=== PATIENT | male | born 1955 | race Caucasian/White ===

== ENCOUNTER 2017-01-23 08:02 | Day surgery (SDC) | payer OTHER ==
[~2017-01-23 08:02] MED LIST: Buffered Lidocaine 0.9% SYRIN* 5 ML/SYR SYRINGE INTRADERM ONE
[2017-01-23] MEDS ORDERED: fentaNYL* 50 MCG/ML 2 ML VIAL (100 MCG VIAL) ONE (08:52)
[2017-01-23] MEDS ORDERED: Midazolam* 1 MG/ML 2 ML VIAL (2 MG) ONE ×2 (08:52→10:04)
[2017-01-23] MEDS ORDERED: Bupivacaine 0.25% SDV* 30 ML ONE (09:28)
[2017-01-23] MEDS ORDERED: ceFAZolin 1 GM VIAL(*) ONE (09:32)
[2017-01-23] MEDS ORDERED: ceFAZolin 2 GM PREMIX (*) 2 GM/50 ML BAG IVPB ONE (09:32)
[2017-01-23] MEDS ORDERED: Famotidine IV* 10 MG/ML 2 ML (20 mg) ONE (09:40)
[2017-01-23] MEDS ORDERED: KETAMINE HCL* 50 MG/ML 10 ML VIAL ONE (09:51)
[2017-01-23] MEDS ORDERED: Ondansetron INJ* 2 MG/ML VIAL IV PRN (10:16)
[2017-01-23] MEDS ORDERED: DiMENhydriNATE IV* 50 MG/ML VIAL IV PUSH PRN (10:16)
[2017-01-23] MEDS ORDERED: Acetaminophen TAB* 325 MG PO PRN (10:16)
[2017-01-23] MEDS ORDERED: Ketorolac INJ* 30 MG/ML 1 ML VIAL ONE ×2 (10:17→11:08)
[2017-01-23] MEDS ORDERED: Lidocaine 2% PF * 5 ML VIAL ONE ×2 (10:24→11:08)
[2017-01-23] MEDS ORDERED: Propofol* 10 MG/ML 20 ML BTL IV PUSH ONE ×2 (10:24→11:08)
[2017-01-23] MEDS ORDERED: Dexamethasone IV* 4 MG/ML 1 ML (4 MG) ONE (11:08)
[2017-01-23 11:14] VITALS: BP 157/82
--- NOTE | 2017-01-24 06:50 | OP ---
DATE OF OPERATION: 01/23/17 [facility] DATE OF : 53 SURGEON: Meng Parra MD COURT COLLECTIONS OFFICER: ANUPAMA Lopez ANESTHESIOLOGIST: Dr. Payne ANESTHESIA: Local MAC. PRE-OP DIAGNOSES: 1. Right carpal tunnel syndrome. 2. Right small trigger finger. POST-OP DIAGNOSES: 1. Right carpal tunnel syndrome. 2. Right small trigger finger. OPERATIVE PROCEDURE: 1. Right open carpal tunnel release. 2. Right small trigger finger release. INDICATIONS: Lucas has had progressive pretty significant right carpal tunnel syndrome. He is also having a right small trigger finger. We talked about his treatment options. He wanted to proceed with releases. I talked to him about risks and benefits. ESTIMATED BLOOD LOSS: 2 mL. COMPLICATIONS: None. FINDINGS: As expected. DESCRIPTION OF PROCEDURE: Lucas was seen in the preoperative holding area. The correct side, site, and procedure were identified. We came back to the operating room where he got some anesthesia and I infiltrated the operative area with 50 mL of 0.25% plain Marcaine. We then prepped and draped the arm in the usual fashion. A time-out was performed. I made a longitudinal incision in the standard location for an open carpal tunnel release. I carried the dissection down through the subcutaneous tissue and palmar fascia. The transverse carpal ligament was released just off the radial aspect of the hook of the hamate. The release was completed distally and I came proximally. He was such a large man and it was quite a deep hole and so I felt like to release it safely I needed to bring the incision back across the wrist flexion crease and so I did that in Katrin type fashion. I then took the remainder of the dissection down at least to the fascial layer and then released the remainder of the transverse carpal ligament in the distal antebrachial fascia just off the ulnar aspect of the palmaris longus tendon. I checked the release, everything was looking good, it was fully released proximally and distally. There was absolutely no pressure on the nerve, so I irrigated out the wound. Skin was closed with 4-0 nylon suture. I then made a 1-cm longitudinal incision over the right small finger A1 gerardo. Dissection was carried down bluntly and the soft tissue was released off the gerardo. Ragnell retractors were placed and then the A1 gerardo was incised along the course of the tendons with the #15 blade in the mid portion of the A1 gerardo. The release was then completed distally and proximally with the tenotomy scissors. I had him flex the hand multiple times. He cannot induce any triggering. We irrigated out the wound. Skin was closed with 4-0 nylon suture. Wounds were dressed with Xeroform, 4x4s, sterile Webril, and Saeed bandage. He was taken to the recovery room in stable condition. Please note I had inflated the tourniquet to 250 mmHg prior to making skin incision and was deflated after dressings were on. [id number]/CPS #: [id number] MTDD
== END 2017-01-23 11:28 | disposition home or self-care (01) ==
LOC: OREAST 08:02
PROVIDERS: ATTEND Orthopaedic Surgery Hand Surgery
DX: G56.01 Carpal tunnel syndrome, right upper limb (principal); M65.351 Trigger finger, right little finger; Z87.891 Personal history of nicotine dependence; E11.9 Type 2 diabetes mellitus without complications; Z79.4 Long term (current) use of insulin; I10 Essential (primary) hypertension
CPT/HCPCS: J0690; J1100; J1885; J2250; J2704; J3010

== ENCOUNTER 2017-04-21 13:24 | Emergency (ER) | payer OTHER ==
[2017-04-21] MEDS ORDERED: D5NS 0.9% 1000 ML BAG* 1,000 ML IV SCH (14:00)
[2017-04-21 15:33] LABS: ABS Basophils 0.1 10^3/ul (0-0.2); ABS Eosinophils 0.2 10^3/ul (0-0.6); ABS Lymphocytes 1.4 10^3/ul (1.0-4.8); ABS Monocytes 0.6 10^3/ul (0-0.8); ABS Neutrophils 6.2 10^3/ul (1.5-7.7); ABS Nucleated RBC 0 10^3/ul; Eosinophil % 1.8 % (0-6); Hematocrit 44 % (42-52); Lymphocyte % 17.1 % (25-47); Mean Corpuscular HGB Conc 34 g/dl (31-36); Mean Corpuscular Hemoglobin 31 pg (27-31); Mean Corpuscular Volume 90 fL (80-94); Mean Platelet Volume 9 um3 (7.4-10.4); Nucleated Red Blood Cells % 0.1; Platelet Count 168 10^3/ul (150-450); Red Cell Distribution Width 13 % (10.5-15); White Blood Count 8.5 10^3/ul (3.5-10.8)
[2017-04-21 15:47] LABS: EGFR Non-African American 112.4 (>60)
[2017-04-21 15:55] LABS: INR 0.96 (0.77-1.02)
[2017-04-21] MEDS ORDERED: Morphine INJ* 4 MG/ML 1 ML CARPUJECT IV ONE (16:54)
[2017-04-21] MEDS ORDERED: Ketorolac INJ* 30 MG/ML 1 ML VIAL IV PUSH ONE (17:04)
[2017-04-21 18:33] VITALS: BP 140/78
--- NOTE | 2017-04-21 18:50 | PN ---
Progress Note - Progress Note Date of Service: 04/21/17 Note: Patient signed out by Brigid ALTMAN pending consult with dr jayla dickerson saw patient and said to return to Monday for admission and surgery monday. He is to restrict weight on the area Diagnosis: hardware issue right leg Condition: stable Disposition: home
[2017-04-24] MEDS ORDERED: Bupivacaine 0.5% SDV PF* 10-30ML VIAL ONE (12:59)
[2017-04-24] MEDS ORDERED: Ondansetron INJ* 2 MG/ML VIAL IV PRN (16:50)
[2017-04-24] MEDS ORDERED: diPHENhydraMINE IV* 50 MG/ML 1 ml VIAL (BENADRYL) IV PRN (16:50)
[2017-04-24] MEDS ORDERED: Ondansetron TAB* 4 MG PO PRN (16:50)
[2017-04-24] MEDS ORDERED: Acetaminophen TAB* 325 MG PO PRN (16:50)
[2017-04-24] MEDS ORDERED: Cyclobenzaprine TAB* 10 MG PO PRN (16:50)
[2017-04-24] MEDS ORDERED: Magnesium Hydroxide LIQ* 30 ML UDC PO PRN (16:50)
[2017-04-24] MEDS ORDERED: Bisacodyl SUPP* 10 MG SUPP PR PRN (16:50)
[2017-04-24] MEDS ORDERED: Morphine INJ* 2 MG/ML 1 ML CARPUJECT IV PRN (16:50)
[2017-04-24] MEDS ORDERED: oxyCODONE TAB* 5 MG TAB PO PRN (16:50)
[2017-04-24] MEDS ORDERED: Morphine INJ* 4 MG/ML 1 ML CARPUJECT IV PRN (16:50)
[2017-04-24] MEDS ORDERED: oxyCODONE/Acetamin 5/325 MG* TAB PO PRN ×2 (16:50)
[2017-04-24] MEDS ORDERED: D5W 1/2 NS 1000 ML BAG* 1,000 ML IV SCH (17:00)
[2017-04-24] MEDS ORDERED: ceFAZolin 1 GM VIAL(*) 1 GM in NS 0.9% 50 ML* 50 ML IVPB SCH (17:00)
[2017-04-24] MEDS ORDERED: Albuterol HFA INHALER* 8 gm MDI INH PRN (17:06)
[2017-04-24] MEDS ORDERED: Docusate CAP* 100 MG PO SCH (21:00)
[2017-04-24] MEDS ORDERED: Magnesium Hydroxide LIQ* 30 ML UDC PO SCH (21:00)
[2017-04-24] MEDS ORDERED: Insulin GLARGINE(*) 1 UNITS UNIT SUBCUT SCH (21:00)
[2017-04-25] MEDS ORDERED: Heparin VIAL(*) 5000 UNITS/ML VIAL (FIVE THOUSAND) SUBCUT SCH (12:00)
[2017-04-25] MEDS ORDERED: Aspirin TAB* 325 MG PO SCH (12:00)
--- NOTE | 2017-04-26 23:09 | CONS ---
CONSULTATION REPORT: DATE OF CONSULT: 04/21/17 - EMERGENCY DEPT REASON FOR CONSULT: Right distal femur hardware, broken, painful. HISTORY OF PRESENT ILLNESS: The patient is a 61-year-old man, a patient of my colleague Dr. Joyners, who is over 1 year status post ORIF right distal femur with a lateral locking plate done at [facility], who has recently had increasing right knee pain and has been followed by Dr. Borges, who presents today to the ED with worsening of this pain. In the last several years, the patient has undergone both open reduction internal fixation of both distal femur and a tibial plateau fractures, right. The patient has had pain and has been followed by Dr. Borges for a nonunion of the right distal femur. MRI on 03/08/17 had shown a persistent fracture cleft at the distal diaphysis of the right femur and a healed right tibial plateau fracture. The patient had seen Dr. Borges, as recently as 03/22/17. Dr. Borges was trying to suss out whether the patient's pain was secondary to arthritis of the right knee or to a nonunion of the distal femur. This would determine whether a surgical management with a total knee arthroplasty versus a revision open reduction and internal fixation of right distal femur would be more appropriate. At the 03/22/17 clinic visit, the patient had a possibly diagnostic and therapeutic injection of the right knee with cortisone. I had seen the patient in my office on 04/06/17. The patient had described some pain about the right thigh from 03/29/17 without any new trauma. He had been using a wheelchair instead of a cane that he had been previously using. The patient had also, it should be stated, used a bone stimulator about the right thigh. At that clinic visit, I interpreted his MRI from February, which showed nonunion. I diagnosed him with right knee osteoarthritis as well as a right femur shaft nonunion. I encouraged the patient to take vitamin D, have a vitamin D testing obtained as vitamin D deficiency can definitely lead to fracture nonunion. I told the patient that given only a minimal response to the cortisone injection of the knee, I thought that his pain was emanating from the nonunion rather than the knee joint itself. I told the patient to follow up with Dr. Borges at his next scheduled appointment. The patient presented today to the emergency room at [facility], complaining of a worsening pain. No new trauma. 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 The patient has no other joint pain. The patient declines pain medication in the emergency department as he says that he prefers to manage the pain in his own way. PAST MEDICAL HISTORY: Diabetes mellitus. PAST SURGICAL HISTORY: Right femur open reduction internal fixation, distal femur; open reduction internal fixation, right tibial plateau; appendectomy; bilateral carpal tunnel release. MEDICATIONS: 1. Lantus. 2. NovoLog. 3. Tylenol p.r.n. 4. Relafen. 5. Albuterol p.r.n. ALLERGIES: No known drug allergies. SOCIAL HISTORY: The patient is a former smoker. 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 The patient [place]. 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 REVIEW OF SYSTEMS: The patient has no headache, no chest pain, shortness of breath, heart palpitations, abdominal pain, right lower extremity no numbness and tingling. No other joint pains with the exception that the patient does have chronic back pain. PHYSICAL EXAM: Vitals at 7:06 p.m. on 04/21/17, the patient had a temperature of 98.2 degrees Fahrenheit, heart rate 77, blood pressure 140/78, respiratory rate 20, O2 saturations 98% on room air. No acute distress. Alert and oriented , appropriate mood and affect, appropriate dress and hygiene. I did not study the patient's gait as he was reclining on a stretcher in the emergency department. Well-coordinated bilateral upper and lower extremities. The patient is obese. The right lower extremity exam revealed no ecchymosis, no soft tissue swelling appreciable as compared to the left thigh and knee. The patient has some mild tenderness to palpation with vigorous palpation by me with my hand of his distal femur. The patient had no clear knee joint effusion. No skin compromise. The patient was comfortable within an arch of range of motion of the right knee passively, proximally 0 to 90 degrees flexion. Neurovascularly intact distally. DIAGNOSTIC STUDIES/LAB DATA: X-rays obtained in the emergency department of the right femur, 7 views, showed a lateral distal femoral plates with a clear break in the plate. A clear comminuted, segmental distal femur fracture is present in various degrees of healing or nonhealing. No significant callous which would indicate a hypertrophioc non-union. As compared to the prior images that I have seen in clinic, there seemed to be a more lucency about an oblique fracture line adjacent to the break in the plate. There is certainly step-off at the more distal of the fracture lines. There was also a tibial plateau plate in place. The patient has joint space narrowing at least moderate in the lateral compartment and mild in the medial compartment. ASSESSMENT: 1. Right distal femur fracture nonunion, atrophic. 2. Acute break in hardware, right distal femoral lateral plate. 3. History of right tibial plateau open reduction, internal fixation and right knee osteoarthritis. PLAN: 1. The patient's broken hardware is new. He has had slowly increasing pain in that right knee and thigh. Nonunion had been demonstrated on 03/08/17 MRI. The patient's pain failed to fully resolve with diagnostic/potentially therapeutic cortisone injection of the right knee. 2. The patient clearly needs a revision open reduction internal fixation of the right distal femur in the operating room. We discussed this. The patient hopes for Dr. Borges to do this procedure. Dr. Borges's office and Dr. Borges had already contacted me prior to my arriving in the emergency department that Dr. Borges would be able to do the procedure in 3 days, on Monday. 3. The patient and I briefly discussed his remaining hospitalized for pain control and functional support, but he preferred to return home. He is non- weight bearing right lower extremity. 4. I asked that the patient return to the hospital in 2 days, on 04/23/17, for a direct admission to the hospitalist service for preoperative clearance and medical and anesthesia management for an operation the following day by Dr. Borges on 04/24/17, that would likely consist of open reduction and internal fixation, revision, right distal femur fracture likely with iliac crest bone autograft. [id number]/[facility] #: [id number] [facility]
--- NOTE | 2017-05-02 12:27 | ED ---
Lower Extremity - HPI Summary HPI Summary: Patient presents to the ED from imaging with a dx of broken plate in the R leg. 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 Dr. Borges is ortho MD for patient. He had also seen Dr. Gonzalez in the office. D/t worsening knee pain, a MRI confirmed hardware to be broken and a new plate will likely need to be replaced. He declines pain medication on arrival. Pain is 8/10 and throbbing. PMHx includes DM and he states he has not eaten yet today. - History of Current Complaint Chief Complaint: EDExtremityLower Stated Complaint: RIGHT LEG BROKEN PLATE Time Seen by Provider: 04/21/17 13:36 Pain Intensity: 3 Pain Scale Used: 0-10 Numeric - Allergies/Home Medications Allergies/Adverse Reactions: Allergies Allergy/AdvReac Type Severity Reaction Status Date / Time environmental Allergy Sneezing Uncoded 01/23/17 08:30 Home Medications: Home Medications Albuterol HFA INHALER* [Ventolin HFA Inhaler*] 2 puff INH Q4H PRN 04/21/17 [ History Confirmed 04/21/17] Insulin ASPART (NF) [Novolog (NF)] 0 - 20 units SUBCUT TID WITH MEALS 04/21/17 [ History Confirmed 04/21/17] PMH/Surg Hx/FS Hx/Imm Hx Endocrine/Hematology History: Reports: Hx Diabetes - INSULIN DEPENDENT Denies: Hx Thyroid Disease Cardiovascular History: Denies: Hx Hypertension, Hx Pacemaker/ICD Respiratory History: Denies: Hx Asthma, Hx Chronic Obstructive Pulmonary Disease (COPD) GI History: Denies: Hx Ulcer History: Denies: Hx Renal Disease Musculoskeletal History: Reports: Hx Arthritis, Other Musculoskeletal History - STATES HAS A HX OF SEVERAL HEALED COMPRESSION FRACTURES Sensory History: Reports: Hx Contacts or Glasses - GLASSES Denies: Hx Hearing Aid Opthamlomology History: Reports: Hx Contacts or Glasses - GLASSES Psychiatric History: Denies: Hx Panic Disorder - Surgical History Surgery Procedure, Year, and Place: CARPAL TUNNEL-BILATERAL. 2016-PLATES IN RIGHT LEG-STELLA. APPENDECTOMY, TEETH REMOVED. TIBIAL [id number]. LASER ABLASION TREATMENT Hx Anesthesia Reactions: Yes - SEE MISC. COMMENT ABOVE - Immunization History Date of Tetanus Vaccine: Unknown Infectious Disease History: No Infectious Disease History: Denies: Hx Hepatitis, Hx Human Immunodeficiency Virus (HIV), Traveled Outside the [place] in Last 30 Days - Family History Known Family History: Positive: Hypertension, Diabetes - Social History Alcohol Use: Rare Substance Use Type: Reports: None Hx Tobacco Use: No Smoking Status (MU): Former Smoker Amount Used/How Often: 1.5 PPD X 10 YEARS Have You Smoked in the Last Year: No Physical Exam Vital Signs On Initial Exam: Initial Vitals Temp Pulse Resp BP Pulse Ox 98.7 F 100 20 185/79 95 04/21/17 13:25 04/21/17 13:25 04/21/17 13:25 04/21/17 13:25 04/21/17 13:25 Diagnostics - Vital Signs Vital Signs Temp Pulse Resp BP Pulse Ox 04/21/17 19:06 98.2 F 77 20 140/78 98 04/21/17 18:30 75 140/78 98 04/21/17 18:00 81 164/79 97 04/21/17 17:30 78 161/84 98 04/21/17 17:00 64 171/101 98 04/21/17 16:30 85 160/78 97 04/21/17 16:00 87 166/96 98 04/21/17 15:30 90 145/83 98 04/21/17 15:00 71 97 04/21/17 14:05 93 97 04/21/17 14:03 154/82 04/21/17 13:25 98.7 F 100 20 185/79 95 - Laboratory Lab Results: Lab Results 04/21/17 04/21/17 04/21/17 Range/Units 13:45 15:24 15:24 WBC 8.5 (3.5-10.8) 10^3/ul RBC 4.90 (4.0-5.4) 10^6/ul Hgb 15.0 (14.0-18.0) g/dl Hct 44 (42-52) % MCV 90 (80-94) fL MCH 31 (27-31) pg MCHC 34 (31-36) g/dl RDW 13 (10.5-15) % Plt Count 168 (150-450) 10^3/ul MPV 9 (7.4-10.4) um3 Neut % (Auto) 73.7 (38-83) % Lymph % (Auto) 17.1 L (25-47) % [place] % (Auto) 6.6 (1-9) % Eos % (Auto) 1.8 (0-6) % Baso % (Auto) 0.8 (0-2) % Absolute Neuts (auto) 6.2 (1.5-7.7) 10^3/ul Absolute Lymphs (auto) 1.4 (1.0-4.8) 10^3/ul Absolute Monos (auto) 0.6 (0-0.8) 10^3/ul Absolute Eos (auto) 0.2 (0-0.6) 10^3/ul Absolute Basos (auto) 0.1 (0-0.2) 10^3/ul Absolute Nucleated RBC 0 10^3/ul Nucleated RBC % 0.1 INR (Anticoag Therapy) 0.96 (0.77-1.02) APTT 32.7 (26.0-36.3) seconds Sodium (133-145) mmol/L Potassium (3.5-5.0) mmol/L Chloride (101-111) mmol/L Carbon Dioxide (22-32) mmol/L Anion Gap (2-11) mmol/L BUN (6-24) mg/dL Creatinine (0.67-1.17) mg/dL Est GFR ( Amer) (>60) Est GFR (Non-Af Amer) (>60) BUN/Creatinine Ratio (8-20) Glucose (70-100) mg/dL POC Glucose (mg/dL) 69 L (70-100) mg/dL Calcium (8.6-10.3) mg/dL Total Bilirubin (0.2-1.0) mg/dL AST (13-39) U/L ALT (7-52) U/L Alkaline Phosphatase (34-104) U/L Total Protein (6.4-8.9) g/dL Albumin (3.2-5.2) g/dL Globulin (2-4) g/dL Albumin/Globulin Ratio (1-3) 04/21/17 Range/Units 15:24 WBC (3.5-10.8) 10^3/ul RBC (4.0-5.4) 10^6/ul Hgb (14.0-18.0) g/dl Hct (42-52) % MCV (80-94) fL MCH (27-31) pg MCHC (31-36) g/dl RDW (10.5-15) % Plt Count (150-450) 10^3/ul MPV (7.4-10.4) um3 Neut % (Auto) (38-83) % Lymph % (Auto) (25-47) % [place] % (Auto) (1-9) % Eos % (Auto) (0-6) % Baso % (Auto) (0-2) % Absolute Neuts (auto) (1.5-7.7) 10^3/ul Absolute Lymphs (auto) (1.0-4.8) 10^3/ul Absolute Monos (auto) (0-0.8) 10^3/ul Absolute Eos (auto) (0-0.6) 10^3/ul Absolute Basos (auto) (0-0.2) 10^3/ul Absolute Nucleated RBC 10^3/ul Nucleated RBC % INR (Anticoag Therapy) (0.77-1.02) APTT (26.0-36.3) seconds Sodium 136 (133-145) mmol/L Potassium 3.8 (3.5-5.0) mmol/L Chloride 103 (101-111) mmol/L Carbon Dioxide 28 (22-32) mmol/L Anion Gap 5 (2-11) mmol/L BUN 11 (6-24) mg/dL Creatinine 0.71 (0.67-1.17) mg/dL Est GFR ( Amer) 144.6 (>60) Est GFR (Non-Af Amer) 112.4 (>60) BUN/Creatinine Ratio 15.5 (8-20) Glucose 198 H (70-100) mg/dL POC Glucose (mg/dL) (70-100) mg/dL Calcium 9.0 (8.6-10.3) mg/dL Total Bilirubin 0.70 (0.2-1.0) mg/dL AST 17 (13-39) U/L ALT 18 (7-52) U/L Alkaline Phosphatase 115 H (34-104) U/L Total Protein 6.3 L (6.4-8.9) g/dL Albumin 3.6 (3.2-5.2) g/dL Globulin 2.7 (2-4) g/dL Albumin/Globulin Ratio 1.3 (1-3) Result Diagrams: 04/21/17 15:24 04/21/17 15:24 Lab Statement: Any lab studies that have been ordered have been reviewed, and results considered in the medical decision making process. Lower Extremity Course/Dx - Course Course Of Treatment: Patient is given D5NS on arrival d/t low BG. Awaited consultation with Dr. Gonzalez. Patient is upset he must wait, but is willing to. He is restircted from any PO intake. He declines medication but later agrees to toradol. Ice given. Daughter (POA) is at bedside. Dr. Gonzalez consulted with patient who agrees to surgery Monday with DR. Borges. He will come back into the hospital on Monday night for an admission. He is Ok with this plan. Discharge - Discharge Plan Condition: Stable Disposition: HOME Patient Education Materials: Leg Pain (ED) Referrals: Yariel Garsai MD [Primary Care Provider] - Additional Instructions: Minimize weight bearing on the right leg. Return on Monday04/23/17 afternoon for a direct admission to the hospitalist, for surgery with Dr. Borges on Monday04/24/17. Return to the ER if you have any new or worsening symptoms.
== END 2017-04-21 19:02 | disposition home or self-care (01) ==
LOC: ED 13:24
DX: M79.604 Pain in right leg (principal); E11.9 Type 2 diabetes mellitus without complications; Z87.891 Personal history of nicotine dependence; Z79.4 Long term (current) use of insulin
CPT/HCPCS: 36415; 80053; 85025; 85610; 85730; 93005; 96374; 96375; 99283; J1885; J2270

== ENCOUNTER 2017-04-23 19:30 | Inpatient (IN) | payer OTHER ==
[2017-04-23] MEDS ORDERED: Albuterol HFA INHALER* 8 gm MDI INH PRN (20:17)
[2017-04-23] MEDS ORDERED: Dextrose 50% Syringe 50 ML* 25 GM/50 ML SYRINGE IV PUSH PRN (20:18)
[2017-04-23] MEDS ORDERED: Nabumetone TAB* 500 MG PO SCH (21:00)
[2017-04-23] MEDS: Insulin LISPRO* 1 UNITS UNIT SUBCUT SCH (21:49)
[2017-04-23] MEDS: Acetaminophen TAB* 325 MG PO PRN (22:02)
--- NOTE | 2017-04-23 23:28 | HP ---
CC: Dr. Garsia; Dr. Borges * HISTORY AND PHYSICAL: DATE OF ADMISSION: 04/23/17 PRIMARY CARE PROVIDER: Dr. Garsia. ORTHOPEDIC SURGEON: Dr. Borges. CHIEF COMPLAINT: Right distal femur fracture with nonunion and broken hardware. HISTORY OF PRESENT ILLNESS: Mr. Graves is a 61-year-old male who on 03/30/16 sustained a fall while in his kitchen and ended up with a distal right femur fracture. He was taken to [facility] where he underwent ORIF. 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 He has tried numerous modalities to try get this to heal. On 03/31/17, the patient awakened from sleep and was going to get out of bed and feel that he could not get up or bear any weight on his leg as he was concerned that the leg would give right out. He felt this was markedly different. He contacted Dr. Borges's office and was going to be set up for a CAT scan of the lower extremity. Finally on , the patient was arranged to have an x-ray of the right distal femur. He was going to leave the radiology suite when the radiologist stopped him from leaving and informing him that a plate had broken and he was referred to the emergency room. In the ER, the patient was seen by Dr. Gonzalez and was arranged to be directly admitted today, 04/23/17, to then undergo revision surgery on with Dr. Borges. The patient states that he has been hobbling around on the leg since the . Prior to that, he had been ambulating with a cane. Despite the now broken hardware, the patient was able to shovel snow while sitting in a wheelchair without any chest pain or shortness of breath and was able to chop wood again without any chest pain or shortness of breath. The patient states he manages pain with Relafen and Tylenol alone. PAST MEDICAL HISTORY: 1. Type 2 diabetes. 2. Chronic pain. PAST SURGICAL HISTORY: 1. Right femur ORIF. 2. Right tibial plateau fracture. 3. Appendectomy. 4. Bilateral carpal tunnel release. MEDICATIONS: 1. Lantus 40 units subcutaneous twice daily. 2. NovoLog 10 to 15 units subcutaneous t.i.d. a.c. 3. Tylenol p.r.n. 4. Relafen 500 mg p.o. b.i.d. 5. Albuterol 2 puffs inhaled q.4 hours p.r.n. shortness of breath. ALLERGIES: No known drug allergies. FAMILY HISTORY: Dad at the age of 88 of melanoma. Mom is also . He believes that she from chronic Tylenol poisoning. SOCIAL HISTORY: The patient is a former smoker. He smoked for approximately 10 years and quit in 1987. He drinks alcohol rarely. 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 He is . His daughter, Trudy, is his healthcare proxy. REVIEW OF SYSTEMS: A complete 11-system review of systems is obtained. Pertinent positives and negatives are as per HPI and otherwise negative. PHYSICAL EXAMINATION GENERAL: The patient is a well-developed, morbidly obese middle-aged male, sitting on the edge of the bed in no acute distress. VITAL SIGNS: Blood pressure 153/86, pulse 84, respirations 16, temp 98.0, O2 sat 98% on room air. HEENT: Pupils are equal. They are round. Extraocular muscles are intact. Oropharynx is clear. Oral mucosa is moist. There is no submandibular, cervical , or supraclavicular adenopathy. Thyroid is not enlarged. No thyroid nodules are noted. PULMONARY: Lungs are clear to auscultation bilaterally. The breath sounds are diminished though the patient does not provide a good effort. CARDIAC: Normal S1 and S2. Regular rate and rhythm. I do not appreciate any murmurs. There is no lower extremity edema. ABDOMEN: Bowel sounds are present. Abdomen is soft, nontender, nondistended. MUSCULOSKELETAL: There is no cyanosis or clubbing of the digits. There is full active range of motion of all 4 extremities. NEURO: Cranial nerves II through XII are grossly intact. Sensation is intact to light touch throughout. Strength is 5/5 and symmetric in both upper and lower extremities bilaterally. SKIN: Warm and dry. There are no rashes. PSYCH: The patient is alert. He is oriented x3. Affect appears appropriate. DIAGNOSTIC STUDIES/LAB DATA: Labs from 04/21/17, WBC 8.5, hemoglobin 15.0, hematocrit 44, platelets 168. Sodium 136, potassium 3.8, chloride 103, CO2 28, BUN 11, creatinine 0.71, glucose 198, calcium 9.0. AST 17, ALT 18, alk phos 115 , albumin 3.6. Right femur x-ray from 04/21/17 reveals right femur cortical plate hardware fracture and either displacement of previous nonunion or refracture at a prior fracture site. ASSESSMENT AND PLAN: Mr. Graves is a 61-year-old male who sustained a distal right femur fracture in March 2016 with resultant nonunion, now with hardware fracture who is being admitted directly for the OR tomorrow, 04/24/17. 1. Right distal femur fracture with nonunion, now with hardware fracture. At this point, the patient is medically optimized to go to the operating room. I will obtain an EKG for baseline purposes. The patient just the other day was able to chop significant amount of wood without any complaints of chest pain or shortness of breath. His ability to ambulate has been limited; however, the amount of exertion takes to chop wood is significant and the fact that he did not get any chest pain is reassuring. I do not think the patient needs an echocardiogram or any further cardiac testing beyond the EKG before proceeding to the operating room. 2. Type 2 diabetes. The patient took his Lantus 40 units subcutaneous this evening. His blood sugar at the time of my evaluation was low at 49. The patient will have a snack now and a repeat glucose checked. For now, my plan is to initiate normal saline at 100 mL per hour at midnight; however if he remains hypoglycemic, we will need to initiate D5 sooner. I will have the patient receive 20 units of Lantus tomorrow morning. Fingersticks will be obtained a.c. and h.s. and he will be covered with a lispro sliding scale. Additionally, hemoglobin A1c will be obtained tomorrow morning. 3. Chronic pain. We will continue p.r.n. Tylenol and Relafen for now. The patient states that at this point he does not want any narcotics as he does not like the way they make him feel. 4. DVT prophylaxis. According to the Adult Thrombosis Prophylaxis Risk Factor Assessment Guide, the patient has a total risk factor score of 3 making him high risk. SCDs alone will be utilized as DVT prophylaxis for now as the plan is to go to the OR tomorrow. 5. Code status is DNR and the patient indicates that his daughter, Trudy, is his healthcare proxy. TIME SPENT: 65 minutes were spent admitting this patient. [id number]/CPS #: [id number] HAIM
[2017-04-23] MEDS ORDERED: NS 0.9% 1000 ML* 1,000 ML IV SCH (23:59)
[2017-04-24] MEDS ORDERED: LORazepam INJ* 2 MG/ML 1 ML VIAL IV PUSH ONE (02:03)
[2017-04-24] MEDS ORDERED: LORazepam INJ* 2 MG/ML 1 ML VIAL ONE (02:09)
[2017-04-24] MEDS: Acetaminophen TAB* 325 MG PO PRN ×2 (04:42→21:25)
[2017-04-24 05:28] LABS: ABS Basophils 0.1 10^3/ul (0-0.2); ABS Eosinophils 0.2 10^3/ul (0-0.6); ABS Lymphocytes 1.8 10^3/ul (1.0-4.8); ABS Monocytes 0.4 10^3/ul (0-0.8); ABS Neutrophils 4.9 10^3/ul (1.5-7.7); ABS Nucleated RBC 0 10^3/ul; Eosinophil % 2.5 % (0-6); Hematocrit 45 % (42-52); Hemoglobin 14.9 g/dl (14.0-18.0); Lymphocyte % 24.5 % (25-47); Mean Corpuscular HGB Conc 34 g/dl (31-36); Mean Corpuscular Hemoglobin 30 pg (27-31); Mean Corpuscular Volume 90 fL (80-94); Mean Platelet Volume 9 um3 (7.4-10.4); Nucleated Red Blood Cells % 0; Platelet Count 207 10^3/ul (150-450); Red Blood Count 4.95 10^6/ul (4.0-5.4); Red Cell Distribution Width 13 % (10.5-15); White Blood Count 7.4 10^3/ul (3.5-10.8)
[2017-04-24 05:35] LABS: INR 0.96 (0.77-1.02)
[2017-04-24 05:39] LABS: EGFR Non-African American 120.2 (>60)
[2017-04-24] MEDS: Nabumetone TAB* 500 MG PO SCH ×2 (06:19→17:41)
[2017-04-24] MEDS: Insulin LISPRO* 1 UNITS UNIT SUBCUT SCH ×3 (07:15→21:20)
[2017-04-24] MEDS: Insulin GLARGINE(*) 1 UNITS UNIT SUBCUT ONE ×2 (07:50→08:03)
--- NOTE | 2017-04-24 08:48 | PN ---
Subjective - Subjective Reason for Note: Progress Note History: I reviewed the H and P from Dr. Marce Willingham. According to patient, the metal plate holding together his right lower femur fracture failed. He is due for surgery today with Dr. Borges to correct this. He has had recent good control of his T2D -03/14/17 A1c 6.3%. His complications are stable at present. He has no cardiac history - in particular, no history of CAD, chest pain, dyspnea or palpitatations. 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 This morning his glycemic control is good, BP on target and he is feeling well. The pain from his leg is "tylenol pain, not opiate pain" Office medication list: acetaminophen 500 mg tablet Take 1 tablet every 6 hours by oral route. Basaglar KwikPen 100 unit/mL (3 mL) subcutaneous 40 units BID or as directed up to 90 units TDD buPROPion HCl XL 150 mg 24 hr tablet, extended release Take 1 tablet every day by oral route. cetirizine 10 mg tablet TAKE ONE TABLET BY MOUTH EVERY DAY DIRECTED DURING ALLERGY SEASON citalopram 20 mg tablet Take 1 tablet twice a day by oral route. FreeStyle Lite Strips 3-5x daily dx e11.9 last appt gabapentin 100 mg capsule insulin syringe-needle U-100 1 mL 31 gauge x 5/16" nabumetone 500 mg tablet TAKE ONE TABLET BY MOUTH TWICE A DAY NovoLOG Flexpen 100 unit/mL subcutaneous omeprazole 20 mg capsule,delayed release TAKE ONE CAPSULE BY MOUTH EVERY DAY oxyCODONE 5 mg tablet oxyCODONE-acetaminophen 5 mg-325 mg tablet traMADol 37.5 mg-acetaminophen 325 mg tablet UltiCare Pen Needle 31 gauge x 5/16" USE WITH NOVOLG AT MEALTIMES, THREE TIMES A DAY Ventolin HFA 90 mcg/actuation aerosol inhaler Inhale 2 puffs every 4 hours by inhalation route. 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 (Chronic) E11.3599 Current Medications: Current Medications Acetaminophen (Tylenol Tab*) 650 mg PO Q4H PRN PRN Reason: PAIN Last Admin: 04/24/17 04:42 Dose: 650 mg Albuterol (Ventolin Hfa Inhaler*) 2 puff INH Q4H PRN PRN Reason: SOB/WHEEZING Dextrose (D50w Syringe 50 Ml*) 12.5 gm IV PUSH .FOR FS < 60 - SS PRN PRN Reason: FS < 60 Sodium Chloride (Ns 0.9% 1000 Ml*) 1,000 mls @ 100 mls/hr IV PER RATE KIRK Dextrose/Sodium Chloride (D5w 1/2 Ns 1000 Ml Bag*) 1,000 mls @ 100 mls/hr IV .PER RATE [facility] Last Admin: 04/24/17 08:10 Dose: 100 mls/hr Insulin Human Lispro (Humalog*) 0 units SUBCUT ACHS [facility] PRN Reason: Protocol Nabumetone (Relafen Tab*) 500 mg PO BID@0530,1730 [facility] Last Admin: 04/24/17 06:19 Dose: 500 mg Home Medications: Home Medications Medication Instructions Recorded Confirmed Type Insulin GLARGINE(*) [Lantus(*)] 40 unit SUBCUT BID 04/08/15 04/23/17 History Nabumetone TAB* [Relafen TAB*] 500 mg PO BID 04/08/15 04/23/17 History Albuterol HFA INHALER* [Ventolin 2 puff INH Q4H PRN 04/21/17 04/23/17 History HFA Inhaler*] Insulin ASPART (NF) [Novolog (NF)] 0 - 20 units SUBCUT TID WITH MEALS 04/21/17 04/23/17 History Allergies: Allergies Allergy/AdvReac Type Severity Reaction Status Date / Time environmental Allergy Sneezing Uncoded 01/23/17 08:30 Objective - Vital Signs Vital Signs: Vital Signs 04/23/17 04/23/17 04/23/17 19:51 21:05 23:46 Temperature 98.0 F Pulse Rate 84 84 Respiratory 16 16 16 Rate Blood Pressure 153/86 145/66 (mmHg) O2 Sat by Pulse 98 95 Oximetry 04/24/17 04/24/17 04/24/17 02:34 03:34 04:50 Temperature 97.6 F Pulse Rate 83 Respiratory 17 16 18 Rate Blood Pressure 157/84 (mmHg) O2 Sat by Pulse 96 Oximetry 04/24/17 07:47 Temperature 97.6 F Pulse Rate 85 Respiratory 20 Rate Blood Pressure 131/84 (mmHg) O2 Sat by Pulse 95 Oximetry - Intake and Output Intake and Output: Intake & Output 04/21/17 04/22/17 04/23/17 04/24/17 11:59 11:59 11:59 11:59 Intake Total 1169 Output Total 500 Balance 669 Weight 315 lb Intake: IV Fluids 1119 NS (0.9%) 1119 Oral 50 Output: Urine 500 Other: Estimated Void Medium ADLs: Meal Record Start: 04/23/17 19: 33 Freq: Status: Active Protocol: Created 04/23/17 19:33 System (Rec: 04/23/17 19:33 System [id number]) Intake and Output Start: 04/23/17 19: 33 Freq: DAILY@0600,1400,2200 Status: Active Protocol: Created 04/23/17 19:33 System (Rec: 04/23/17 19:33 System [id number]) Document 04/23/17 22:00 [id number] (Rec: 04/23/17 23:08 [id number]) Document 04/24/17 04:30 [id number] (Rec: 04/24/17 06:06 [id number]) Document 04/24/17 05:04 [id number] (Rec: 04/24/17 05:04 [id number]) - Physical Exam General: No Cyanosis, No Anemia, No Jaundice, No Clubbing Skin: Normal: Rash Lungs and Chest: Yes: Chest Expansion Full, Chest Expansion Symetrica, Percussion Note Resonant, Vessicular Breath Sounds. No: Crackles, Wheezes, Respiratory Distress, Use of Accessory Muscles Heart Rate and Rhythm: Regular JVP: Not Elevated Additional Cardiovascular: Yes: Normal Heart Sounds. No: Heart Murmur, Pedal Edema Abdominal Exam: Yes: Soft, Bowel Sounds Present. No: Distention, Abdominal Tenderness Results - Results Lab Results: Laboratory Results - last 24 hr 04/23/17 04/23/17 04/24/17 20:11 21:33 05:01 WBC 7.4 RBC 4.95 Hgb 14.9 Hct 45 MCV 90 MCH 30 MCHC 34 RDW 13 Plt Count 207 MPV 9 Neut % (Auto) 66.4 Lymph % (Auto) 24.5 L [place] % (Auto) 5.6 Eos % (Auto) 2.5 Baso % (Auto) 1.0 Absolute Neuts (auto) 4.9 Absolute Lymphs (auto) 1.8 Absolute Monos (auto) 0.4 Absolute Eos (auto) 0.2 Absolute Basos (auto) 0.1 Absolute Nucleated RBC 0 Nucleated RBC % 0 INR (Anticoag Therapy) Sodium Potassium Chloride Carbon Dioxide Anion Gap BUN Creatinine Est GFR ( Amer) Est GFR (Non-Af Amer) BUN/Creatinine Ratio Glucose POC Glucose (mg/dL) 49 L 124 H Calcium 04/24/17 04/24/17 05:01 05:01 WBC RBC Hgb Hct MCV MCH MCHC RDW Plt Count MPV Neut % (Auto) Lymph % (Auto) [place] % (Auto) Eos % (Auto) Baso % (Auto) Absolute Neuts (auto) Absolute Lymphs (auto) Absolute Monos (auto) Absolute Eos (auto) Absolute Basos (auto) Absolute Nucleated RBC Nucleated RBC % INR (Anticoag Therapy) 0.96 Sodium 138 Potassium 3.9 Chloride 105 Carbon Dioxide 27 Anion Gap 6 BUN 13 Creatinine 0.67 Est GFR ( Amer) 154.6 Est GFR (Non-Af Amer) 120.2 BUN/Creatinine Ratio 19.4 Glucose 84 POC Glucose (mg/dL) Calcium 9.2 EKG Report: EKG 82 sinus rhythm 82 OH 173 QTc 429 QRS axis 937. Left axis deviation. No ST -T wave abnormalities Assessment - Problem List Assessment: Patient Problems Failed hardware (Acute) Fracture of distal end of right femur with nonunion (Acute) Chronic low back pain (Chronic) Depression (Chronic) Essential hypertension (Chronic) Obesity, Class III, BMI 40-49.9 (morbid obesity) (Chronic) Osteoarthritis (Chronic) Type 2 diabetes mellitus with diabetic neuropathy (Chronic) Type 2 diabetes mellitus with proliferative retinopathy (Chronic) Plan: Failed hardware (Acute)Fracture of distal end of right femur with nonunion ( Acute) Due for surgical correction under general anesthesia today. He requires no further pre-operative risk stratification and requires no cardiac or respiratory special measures. Type 2 diabetes mellitus with diabetic neuropathy (Chronic)Type 2 diabetes mellitus with proliferative retinopathy (Chronic) I have arranged for D5/0.5 NS at 100 mls per hour. He has both basal and bolus insulin for this procedure. Chronic low back pain (Chronic)/Osteoarthritis (Chronic) chronic "2/10" pain throughout his body Depression (Chronic) He seems to be doing well Essential hypertension (Chronic) At target Obesity, Class III, BMI 40-49.9 (morbid obesity) (Chronic) ongoing issue I discussed the above with Mr. Graves and he is ready to go ahead with the surgery. I will reinstate his usual medication post-operatively when he is eating and drinking. He needs to be home in 2 days to take care of his farm.
[2017-04-24] MEDS ORDERED: D5W 1/2 NS 1000 ML BAG* 1,000 ML IV SCH ×2 (09:00→18:00)
[2017-04-24] MEDS ORDERED: Propofol* 500 MG/50 ML BTL ONE (09:54)
[2017-04-24] MEDS ORDERED: Midazolam* 1 MG/ML 2 ML VIAL (2 MG) ONE ×3 (09:54→13:08)
[2017-04-24] MEDS ORDERED: Lidocaine 2% PF * 5 ML VIAL ONE (09:54)
[2017-04-24] MEDS ORDERED: Bupivacaine 0.5% SDV PF* 10-30ML VIAL ONE ×2 (09:54→12:59)
[2017-04-24] MEDS ORDERED: fentaNYL* 50 MCG/ML 2 ML VIAL (100 MCG VIAL) ONE (09:54)
[2017-04-24] MEDS ORDERED: Morphine PF AMP (0.5MG/ML)* 5 MG/10 ML AMP ONE (11:09)
[2017-04-24] MEDS ORDERED: ceFAZolin 2 GM PREMIX (*) 2 GM/50 ML BAG IVPB ONE (11:19)
[2017-04-24] MEDS ORDERED: ceFAZolin 1 GM in Dextrose (*) 1 GM/50 ML BAG IVPB ONE (11:19)
[2017-04-24] MEDS ORDERED: HYDROmorphone INJ* 1 MG/ML CARPUJECT SYRINGE IV PRN (11:32)
[2017-04-24] MEDS ORDERED: oxyCODONE TAB* 5 MG TAB PO PRN (11:32)
[2017-04-24] MEDS ORDERED: Scopolamine 1.5 mg* PATCH TRANSDERM PRN (11:32)
[2017-04-24] MEDS ORDERED: Naloxone* 0.4 MG/ML 1 ML VIAL IV PRN ×2 (11:32→15:39)
[2017-04-24] MEDS ORDERED: oxyCODONE/Acetamin 5/325 MG* TAB PO PRN ×2 (11:32→15:39)
[2017-04-24] MEDS ORDERED: Ondansetron INJ* 2 MG/ML VIAL IV PRN (11:32)
[2017-04-24] MEDS ORDERED: Nalbuphine* 20 MG/ML 1 ML VIAL IV PRN ×2 (11:32→15:39)
[2017-04-24] MEDS ORDERED: Ibuprofen TAB* 600 MG PO PRN (11:32)
[2017-04-24] MEDS ORDERED: Levalbuterol 0.63MG/3ML NEB* UNIT OF USE INH PRN (11:32)
[2017-04-24] MEDS ORDERED: fentaNYL* 50 MCG/ML 2 ML VIAL (100 MCG VIAL) IV PRN (11:32)
[2017-04-24] MEDS ORDERED: KETAMINE HCL* 50 MG/ML 10 ML VIAL ONE (11:50)
[2017-04-24] MEDS ORDERED: Bupivacaine 0.25% SDV* 30 ML ONE (12:06)
[2017-04-24] MEDS ORDERED: Lidocaine 1% MPF wEPI 200,000* 30 ML SDV ONE (12:58)
[2017-04-24] MEDS ORDERED: Propofol* 10 MG/ML 20 ML BTL IV PUSH ONE ×2 (14:22→15:33)
[2017-04-24] MEDS ORDERED: EPHEDrine (Pressors)* 50 MG/ML VIAL ONE (15:33)
[2017-04-24] MEDS ORDERED: Esmolol* 10 MG/ML 10 ML (100 mg) ONE (15:33)
[2017-04-24] MEDS ORDERED: Sterile Water for Inj* 10 ML ONE (15:33)
[2017-04-24] MEDS ORDERED: Phenylephrine IV* 40 MCG/ML 10 ML SYRINGE ONE (15:33)
[2017-04-24] MEDS ORDERED: Phenylephrine INJ* 10 MG/ML 1 ML VIAL (10 MG) ONE (15:33)
[2017-04-24] MEDS ORDERED: Ketorolac INJ* 30 MG/ML 1 ML VIAL IV PRN (15:39)
[2017-04-24] MEDS ORDERED: diPHENhydraMINE IV* 50 MG/ML 1 ml VIAL (BENADRYL) ONE ×2 (16:49→20:03)
[2017-04-24] MEDS ORDERED: Nalbuphine* 20 MG/ML 1 ML VIAL ONE (17:10)
[2017-04-24] MEDS ORDERED: Bisacodyl SUPP* 10 MG SUPP PR PRN (17:19)
[2017-04-24] MEDS ORDERED: Magnesium Hydroxide LIQ* 30 ML UDC PO PRN (17:19)
--- NOTE | 2017-04-24 19:31 | RAD ---
Indication: Status post right femur ORIF Comparison: Preoperative radiograph dated April 21, 2017 Technique: 6 views right femur. Report: There is a plate and screw fixator along the lateral margin of distal right femur. The fracture distal right femur is anatomically aligned. The plate and screw fixator is partially visualized at the lateral aspect of the right tibia. IMPRESSION: Postoperative findings as described above.
--- NOTE | 2017-04-24 19:54 | RAD ---
CPT II Codes: 6045F INDICATION: Fracture of previously placed right distal femur plate and screw fixator TECHNIQUE: Intraoperative fluoroscopy was provided during ORIF distal right femur fracture. FINDINGS: 5 spot films depict plate and screw fixation of the distal right femur. Fluoroscopy time: 23.7 seconds IMPRESSION: As above.
[2017-04-24] MEDS: Docusate CAP* 100 MG PO SCH (21:18)
[2017-04-24] MEDS: Insulin GLARGINE(*) 1 UNITS UNIT SUBCUT SCH (21:19)
[2017-04-24] MEDS: ceFAZolin 1 GM in Dextrose (*) 1 GM/50 ML BAG IVPB SCH (21:19)
[2017-04-24] MEDS: Magnesium Hydroxide LIQ* 30 ML UDC PO SCH (21:26)
[2017-04-24] MEDS: Aspirin TAB* 325 MG PO SCH (21:26)
[2017-04-24] MEDS ORDERED: diPHENhydraMINE IV* 50 MG/ML 1 ml VIAL (BENADRYL) IV PRN (21:56)
[2017-04-25] MEDS: ceFAZolin 1 GM in Dextrose (*) 1 GM/50 ML BAG IVPB SCH ×2 (04:10→11:24)
[2017-04-25] MEDS ORDERED: oxyCODONE TAB* 5 MG TAB PO PRN (04:30)
[2017-04-25] MEDS ORDERED: Morphine INJ* 2 MG/ML 1 ML SYRINGE (TWO MG - NEW SYRINGE VERSION) IV PRN (04:30)
[2017-04-25] MEDS ORDERED: Morphine INJ* 4 MG/ML 1 ML CARPUJECT IV PRN (04:30)
[2017-04-25] MEDS ORDERED: Ondansetron TAB* 4 MG PO PRN (04:30)
[2017-04-25] MEDS ORDERED: Ondansetron INJ* 2 MG/ML VIAL IV PRN (04:30)
[2017-04-25] MEDS ORDERED: diPHENhydraMINE IV* 50 MG/ML 1 ml VIAL (BENADRYL) IV PRN (04:30)
[2017-04-25] MEDS ORDERED: oxyCODONE/Acetamin 5/325 MG* TAB PO PRN ×2 (04:30)
[2017-04-25] MEDS: Acetaminophen TAB* 325 MG PO PRN ×3 (06:16→18:27)
[2017-04-25] MEDS: Nabumetone TAB* 500 MG PO SCH ×3 (06:16→21:14)
[2017-04-25] MEDS ORDERED: Insulin ASPART (NF) 1 UNIT SUBCUT SCH (08:00)
--- NOTE | 2017-04-25 08:13 | PN ---
Progress Note - Progress Note Date of Service: 04/25/17 SOAP: Subjective: []Patient seen at bedside. RLE pain of incision only, which is tolerate. Denies any other pain, CP, SOB, dizziness. Had an episode of vomiting last night with resolution of nausea. Objective: []General: Well appearing, NAD RLE: Dressing CDI. DF/PF intact. DP 2+. Sensation intact distally BL LE: calves supple and nontender without erythema, edema or palpable cords. Negative Shawna's sign. Vital Signs Temp 98.5 F 04/25/17 07:24 Pulse 100 04/25/17 07:24 Resp 18 04/25/17 07:24 BP 112/54 04/25/17 07:24 Pulse Ox 93 04/25/17 07:24 Intake & Output 04/24/17 04/25/17 04/25/17 18:59 06:59 18:59 Intake Total 2801 2017 Output Total 600 1825 Balance 2201 192 Intake: IV Fluids 2801 887 3 GM ANCEF 100 D5W 1/2 NS 887 NS (0.9%) 201 lr 2500 Oral 1130 Output: Urine 0 Straight Cath 1825 Estimated Blood Loss 600 Other: # Bowel Movements 0 Laboratory Last Values WBC 7.4 10^3/ul (3.5-10.8) 04/24/17 05:01 RBC 4.95 10^6/ul (4.0-5.4) 04/24/17 05:01 Hgb 14.9 g/dl (14.0-18.0) 04/24/17 05:01 Hct 45 % (42-52) 04/24/17 05:01 MCV 90 fL (80-94) 04/24/17 05:01 MCH 30 pg (27-31) 04/24/17 05:01 MCHC 34 g/dl (31-36) 04/24/17 05:01 RDW 13 % (10.5-15) 04/24/17 05:01 Plt Count 207 10^3/ul (150-450) 04/24/17 05:01 MPV 9 um3 (7.4-10.4) 04/24/17 05:01 Neut % (Auto) 66.4 % (38-83) 04/24/17 05:01 Lymph % (Auto) 24.5 % (25-47) L 04/24/17 05:01 [place] % (Auto) 5.6 % (1-9) 04/24/17 05:01 Eos % (Auto) 2.5 % (0-6) 04/24/17 05:01 Baso % (Auto) 1.0 % (0-2) 04/24/17 05:01 Absolute Neuts (auto) 4.9 10^3/ul (1.5-7.7) 04/24/17 05:01 Absolute Lymphs (auto) 1.8 10^3/ul (1.0-4.8) 04/24/17 05:01 Absolute Monos (auto) 0.4 10^3/ul (0-0.8) 04/24/17 05:01 Absolute Eos (auto) 0.2 10^3/ul (0-0.6) 04/24/17 05:01 Absolute Basos (auto) 0.1 10^3/ul (0-0.2) 04/24/17 05:01 Absolute Nucleated RBC 0 10^3/ul 04/24/17 05:01 Nucleated RBC % 0 04/24/17 05:01 INR (Anticoag Therapy) 0.96 (0.77-1.02) 04/24/17 05:01 Sodium 138 mmol/L (133-145) 04/24/17 05:01 Potassium 3.9 mmol/L (3.5-5.0) 04/24/17 05:01 Chloride 105 mmol/L (101-111) 04/24/17 05:01 Carbon Dioxide 27 mmol/L (22-32) 04/24/17 05:01 Anion Gap 6 mmol/L (2-11) 04/24/17 05:01 BUN 13 mg/dL (6-24) 04/24/17 05:01 Creatinine 0.67 mg/dL (0.67-1.17) 04/24/17 05:01 Est GFR ( Amer) 154.6 (>60) 04/24/17 05:01 Est GFR (Non-Af Amer) 120.2 (>60) 04/24/17 05:01 BUN/Creatinine Ratio 19.4 (8-20) 04/24/17 05:01 Glucose 84 mg/dL (70-100) 04/24/17 05:01 POC Glucose (mg/dL) 246 mg/dL (70-100) H 04/25/17 07:52 Hemoglobin A1c 6.1 % (4.0-5.6) H 04/24/17 05:01 Calcium 9.2 mg/dL (8.6-10.3) 04/24/17 05:01 Assessment: []POD 1 s/p hardware removal, ORIF R femur 04/24/16, Dr Borges Plan: []Awaiting today's labs TTWB PT/OT Immobilizer for comfort Plan for DC home 04/26 Dr. Garsia following for medical management
--- NOTE | 2017-04-25 08:39 | PN ---
Subjective - Subjective Reason for Note: Progress Note History: He tolerated the surgery yesterday - this was done with spinal anesthesia. He had problems with opioid - required a straight catheterization due to urinary retention. He has yet to void this morning. He is feeling well this morning. The pain is much improved - slight incisional pain. He thinks that he can manage this with relafen. He is hungry. His glucose level is elevated as he is continuing to receive IVF with 5% dextrose. He has been out of bed. Current Medications: Current Medications Acetaminophen (Tylenol Tab*) 650 mg PO Q4H PRN PRN Reason: FEVER/PAIN Last Admin: 04/25/17 06:16 Dose: 650 mg Albuterol (Ventolin Hfa Inhaler*) 2 puff INH Q4H PRN PRN Reason: SOB/WHEEZING Aspirin (Aspirin Tab*) 325 mg PO BID [facility] Last Admin: 04/24/17 21:26 Dose: 325 mg Bisacodyl (Dulcolax Supp*) 10 mg NC DAILY PRN PRN Reason: constipation Dextrose (D50w Syringe 50 Ml*) 12.5 gm IV PUSH .FOR FS < 60 - SS PRN PRN Reason: FS < 60 Diphenhydramine HCl (Benadryl Iv*) 25 mg IV Q6H PRN PRN Reason: itching Docusate Sodium (Colace Cap*) 100 mg PO BID [facility] Last Admin: 04/24/17 21:18 Dose: 100 mg Heparin Sodium (Porcine) (Heparin Vial(*)) 5,000 units SUBCUT Q12HR [facility] Sodium Chloride (Ns 0.9% 1000 Ml*) 1,000 mls @ 100 mls/hr IV PER RATE [facility] Cefazolin Sodium/Dextrose (Kefzol 1 Gm In Dextrose Duplex (*)) 1 gm in 50 mls @ 200 mls/hr IVPB Q8H [facility] Stop: 04/25/17 12:44 Last Admin: 04/25/17 04:10 Dose: 200 mls/hr Insulin Aspart (Novolog (Nf)) 0 - 20 units SUBCUT TID WITH MEALS [facility] Insulin Glargine (Lantus(*)) 40 units SUBCUT BID [facility] Last Admin: 04/24/17 21:19 Dose: 40 units Insulin Human Lispro (Humalog*) 0 units SUBCUT ACHS [facility] PRN Reason: Protocol Last Admin: 04/24/17 21:20 Dose: 6 units Magnesium Hydroxide (Milk Of Magnesia Liq*) 30 ml PO BID [facility] Last Admin: 04/24/17 21:26 Dose: Not Given Magnesium Hydroxide (Milk Of Magnesia Liq*) 30 ml PO Q6H PRN PRN Reason: constipation Morphine Sulfate (Morphine Inj (Syringe)*) 2 mg IV Q2H PRN PRN Reason: PAIN - SEVERE Morphine Sulfate (Morphine Inj (Syringe)*) 4 mg IV Q2H PRN PRN Reason: PAIN - SEVERE Multivitamins (Theragran Tab*) 1 tab PO DAILY [facility] Nabumetone (Relafen Tab*) 500 mg PO BID@1132,0760 [facility] Last Admin: 04/25/17 06:16 Dose: 500 mg Ondansetron HCl (Zofran Inj*) 4 mg IV Q6H PRN PRN Reason: nausea Ondansetron HCl (Zofran Tab*) 4 mg PO Q6H PRN PRN Reason: NAUSEA Oxycodone HCl (Roxycodone Tab*) 10 mg PO Q4H PRN PRN Reason: PAIN - SEVERE Oxycodone/Acetaminophen (Percocet 5/325 Tab*) 2 tab PO Q4H PRN PRN Reason: PAIN - MODERATE Oxycodone/Acetaminophen (Percocet 5/325 Tab*) 1 tab PO Q4H PRN PRN Reason: PAIN - MILD Pharmacy Profile Note (Scopolamine Patch Remove*) 1 note PATCH OFF Q72H ONE Stop: 04/27/17 11:34 Scopolamine (Transderm-Scop 1.5 Mg Patch*) 1 patch TRANSDERM Q72H PRN PRN Reason: Nausea/Vomiting Home Medications: Home Medications Medication Instructions Recorded Confirmed Type Insulin GLARGINE(*) [Lantus(*)] 40 unit SUBCUT BID 04/08/15 04/23/17 History Nabumetone TAB* [Relafen TAB*] 500 mg PO BID 04/08/15 04/23/17 History Albuterol HFA INHALER* [Ventolin 2 puff INH Q4H PRN 04/21/17 04/23/17 History HFA Inhaler*] Insulin ASPART (NF) [Novolog (NF)] 0 - 20 units SUBCUT TID WITH MEALS 04/21/17 04/23/17 History Allergies: Allergies Allergy/AdvReac Type Severity Reaction Status Date / Time environmental Allergy Sneezing Uncoded 01/23/17 08:30 Objective - Vital Signs Vital Signs: Vital Signs 04/24/17 04/24/17 04/24/17 16:47 16:50 16:55 Temperature 96.8 F Pulse Rate 108 104 104 Respiratory 16 13 12 Rate Blood Pressure 114/91 123/79 114/80 (mmHg) O2 Sat by Pulse 94 94 92 Oximetry 04/24/17 04/24/17 04/24/17 17:00 17:12 17:15 Temperature Pulse Rate 105 98 Respiratory 15 16 20 Rate Blood Pressure 120/81 114/89 (mmHg) O2 Sat by Pulse 95 97 Oximetry 04/24/17 04/24/17 04/24/17 17:29 17:45 18:00 Temperature 97.7 F Pulse Rate 101 105 110 Respiratory 20 20 18 Rate Blood Pressure 117/83 121/70 134/81 (mmHg) O2 Sat by Pulse 99 99 98 Oximetry 04/24/17 04/24/17 04/24/17 19:03 19:30 20:00 Temperature 97.1 F 97.6 F Pulse Rate 115 127 Respiratory 18 16 18 Rate Blood Pressure 107/65 136/71 (mmHg) O2 Sat by Pulse 98 98 Oximetry 04/24/17 04/24/17 04/24/17 20:06 20:31 21:18 Temperature 98.1 F Pulse Rate 117 Respiratory 18 18 18 Rate Blood Pressure 135/66 (mmHg) O2 Sat by Pulse 96 Oximetry 04/24/17 04/24/17 04/24/17 21:27 21:40 22:36 Temperature 98.5 F Pulse Rate 119 Respiratory 18 18 18 Rate Blood Pressure 121/69 (mmHg) O2 Sat by Pulse 96 Oximetry 04/24/17 04/25/17 04/25/17 23:28 00:04 00:51 Temperature 98.0 F Pulse Rate 122 Respiratory 16 20 16 Rate Blood Pressure 118/74 (mmHg) O2 Sat by Pulse 100 Oximetry 04/25/17 04/25/17 04/25/17 02:57 03:04 03:55 Temperature Pulse Rate Respiratory 18 16 Rate Blood Pressure (mmHg) O2 Sat by Pulse 100 Oximetry 04/25/17 04/25/17 04/25/17 05:25 07:24 08:00 Temperature 98.3 F 98.5 F Pulse Rate 102 100 Respiratory 18 18 16 Rate Blood Pressure 124/68 112/54 (mmHg) O2 Sat by Pulse 95 93 93 Oximetry - Intake and Output Intake and Output: Intake & Output 04/22/17 04/23/17 04/24/17 04/25/17 11:59 11:59 11:59 11:59 Intake Total 1169 4617 Output Total 500 2425 Balance 669 2192 Weight 315 lb Intake: IV Fluids 1119 3487 3 GM ANCEF 100 D5W 1/2 NS 887 NS (0.9%) 1119 lr 2500 Oral 50 1130 Output: Urine 500 0 Straight Cath 1825 Estimated Blood Loss 600 Other: Estimated Void Medium # Bowel Movements 0 ADLs: Meal Record Start: 04/23/17 19: 33 Freq: Status: Active Protocol: Created 04/23/17 19:33 System (Rec: 04/23/17 19:33 System [id number]) Document 04/24/17 19:00 [id number] (Rec: 04/24/17 22:07 [id number] SSU-C01) Intake and Output Start: 04/23/17 19: 33 Freq: DAILY@0600,1400,2200 Status: Cancelled Protocol: Created 04/23/17 19:33 System (Rec: 04/23/17 19:33 System [id number]) Document 04/23/17 22:00 [id number] (Rec: 04/23/17 23:08 [id number] SSU-C05) Document 04/24/17 04:30 [id number] (Rec: 04/24/17 06:06 [id number] SSU-C05) Document 04/24/17 05:04 [id number] (Rec: 04/24/17 05:04 [id number] SSU-C08) Intake and Output Start: 04/24/17 17: 20 Freq: 06,14,2200 Status: Active Protocol: Created 04/24/17 17:31 [id number] (Rec: 04/24/17 17:31 BKG [id number]) Document 04/24/17 21:56 [id number] (Rec: 04/24/17 21:57 [id number] SSU-C09) Document 04/25/17 02:53 [id number] (Rec: 04/25/17 02:53 [id number] U-C05) Document 04/25/17 05:50 [id number] (Rec: 04/25/17 05:50 [id number] U-C06) - Physical Exam General: No Cyanosis, No Anemia, No Jaundice, No Clubbing Lungs and Chest: Yes: Chest Expansion Full, Chest Expansion Symetrica, Percussion Note Resonant, Vessicular Breath Sounds. No: Crackles, Wheezes Heart Rate and Rhythm: Regular JVP: Not Elevated Additional Cardiovascular: Yes: Normal Heart Sounds. No: Heart Murmur, Pedal Edema Abdominal Exam: Yes: Soft, Bowel Sounds Present. 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 He is progressing to a consistent carbohydrate diet. He will get out of bed today and start walking again with a view to getting him home tomorrow. I have stopped his IVF and he is back on his usual dose of glargine insulin, I will add carb counting. I will write for NSAID instead of opioid pain control.
[2017-04-25] MEDS ORDERED: Dextrose 50% Syringe 50 ML* 25 GM/50 ML SYRINGE IV PUSH PRN ×2 (08:45→08:46)
[2017-04-25] MEDS ORDERED: traMADol TAB* 50 MG PO PRN (09:17)
[2017-04-25] MEDS: Magnesium Hydroxide LIQ* 30 ML UDC PO SCH ×2 (10:02→21:15)
[2017-04-25] MEDS: Insulin GLARGINE(*) 1 UNITS UNIT SUBCUT SCH ×2 (10:09→21:12)
[2017-04-25] MEDS: Insulin LISPRO* 1 UNITS UNIT SUBCUT SCH ×5 (10:09→18:28)
[2017-04-25] MEDS: Docusate CAP* 100 MG PO SCH ×2 (10:10→21:14)
[2017-04-25] MEDS: Vitamin THERAPEUTIC TAB PO SCH (10:11)
[2017-04-25] MEDS: Aspirin TAB* 325 MG PO SCH ×2 (10:11→21:14)
[2017-04-25] MEDS: Omeprazole CAP* 20 MG PO SCH (11:04)
[2017-04-25] MEDS: Cetirizine* 10 MG TAB PO SCH (11:04)
[2017-04-25 11:10] LABS: Hematocrit 36 % (42-52); Hemoglobin 12.2 g/dl (14.0-18.0); Mean Platelet Volume 9 um3 (7.4-10.4); Platelet Count 240 10^3/ul (150-450)
[2017-04-25] MEDS: Heparin VIAL(*) 5000 UNITS/ML VIAL (FIVE THOUSAND) SUBCUT SCH ×2 (11:24→21:14)
[2017-04-25 13:06] LABS: INR 1.07 (0.77-1.02)
--- NOTE | 2017-04-25 13:16 | OP ---
DATE OF OPERATION: 04/24/17 - ROOM #340 DATE OF : 53 SURGEON: Ric Borges MD PRODUCT SAFETY PROFESSIONAL: Suzanne Stoner RPA ANESTHESIA: Spinal and sedation. PRE-OP DIAGNOSES: 1. Nonunion, right femur fracture. 2. Broken hardware, right femur. POST-OP DIAGNOSES: 1. Nonunion, right femur fracture. 2. Broken hardware, right femur. OPERATIVE PROCEDURE: 1. Open reduction and internal fixation with bone grafting, right femur. 2. Removal of hardware, right femur. INDICATIONS: Mr. Graves is a 61-year-old male, who a year ago had fallen at home and sustained a comminuted femur fracture. He had been treated at [facility], but because of insurance issues, he could not follow up there and followed up with us in [place]. His fracture was quite comminuted and much of it had healed, but it looked as if he did form an area which was probably a fibrous union. He was minimally symptomatic until several weeks ago. He then started having more pain and initially a CAT scan had been ordered, but this was not approved by his insurance company, so eventually a plain x-ray was obtained, which showed a broken plate. This was last Monday, and at that time, I discussed that he could either come back on Monday to be readmitted as we would need to get in the femoral plates in order to fix this. He did not want to stay Monday and Monday, so arrangements were made for him to return on Monday and he was admitted Monday night and was n.p.o. I discussed with him that an ORIF should work well to decrease his pain and hopefully with some bone grafting his fracture would heal. Risks of surgery such as infection, scar formation, stiffness, DVT, pulmonary embolism, and continued nonhealing were some of the risks discussed. He had wished to proceed. ESTIMATED BLOOD LOSS: 600 cc. COMPLICATIONS: None. DESCRIPTION OF PROCEDURE: The patient was brought to the OR and spinal anesthesia was introduced. C-arm was brought in to make sure I could see adequately in AP and lateral planes and this did look good. Right leg was prepped and then draped. Skin over the old scars was infiltrated using a 50:50 mixture of 0.5% Marcaine with 1% lidocaine with epinephrine. Incision was made over the old scar and carried down through subcutaneous tear. I eventually did come to part of his vastus lateralis and attempted to find some of the scar tissue. Scar was found along the inferior border: distally from about 5 cm up from the lateral flare of the epicondyle. I was able to just come down through scar and come down on to plate. This opened the joint capsule as well and quite a bit of clear yellowish joint fluid was encountered. Using the Tena and then working upwards following the plate, plate was stripped of extensive soft tissue scar and gristle. Eventually, the plate from where it was broken and distal tip was exposed and a star screwdriver was used to remove all of the screws. Tena and the special tools that separate the plate from bone were also used and eventually the plate was removed. Rongeur was used to debride some of the fibrous tissues, which had sprung up into the little hole areas. Coming upwards, incision was made over one of the more proximal second incision that he had and was carried down through the skin and subcutaneous tissues. Fascia was sharply incised and muscle was then bluntly split. I just had a little bit of membrane that I came down on to the plate and this was pierced using a Metzenbaum scissor. Tena was then used to slide up and along the plate to strip soft tissues and scar and gristle again from the plate and this was guided with a superior hole as well. Once I gotten essentially the Tena to cling on the metal of the plate the entire way, screwdriver was then seated and used to remove all the proximal screws. Proximal broken plate was then also removed. There had been 1 bleeder, which had been found by the muscle, which was suture ligated. Coming back to the area of the fracture, he had a very specific fibrous union and rongeur was used to remove the scar tissue until I had nice edges of bone. Small pieces were nibbled off. Bone was impacted together and he had good medial and lateral cortices and a posterior cortex, but not much of an anterior cortex. Coming distally and comparing the [place] plate with the Synthes plate , 3 of the screws overlapped distally leaving me approximately 3 other screws that I could use as new holes. One of the old holes was then opened a little bit and the cortex as well as some of the cancellous bone was curetted and added to [place] putty. That putty was then placed into the anterior defect at the non-union site and packed; 2 small jars were used and this recreated essentially his anterior cortex. Alejandro plate was placed and sat quite nicely. I reused one of the locking holes with a locking screw to hold the plate into place and then 3 additional locking screws and 1 additional screw were all placed. Proximally, he sat fairly well and even though this was done with essentially percutaneous technique, previous plate sat a little bit anteriorly, so I pushed downwards where I thought would be more in the middle or perhaps a little bit posterior and it turned out was a little bit posterior. I was able to seat 3 screws quite nicely, but I thought my last screw would probably cut through his cortex, so that was why I did not go more proximally. Coming back, I had used a regular cortical screw in order to lag the plate down and this was then traded out for another locking screw. Nice solid repair was obtained. Wounds were copiously irrigated using pulse lavage and scar was brought back to scar over the larger incision. On the more proximal smaller incision, fascia was closed using interrupted #1 Vicryl sutures. Subcutaneous tissue was reapproximated using 2-0 Vicryl. Skin was closed using carlo. Sterile dressing and knee immobilizer were applied in the OR. The patient was awakened, stable on transfer to the recovery room. [id number]/[facility] #: [id number] HAIM
[2017-04-26] MEDS: Acetaminophen TAB* 325 MG PO PRN ×2 (01:08→07:14)
[2017-04-26 07:42] VITALS: BP 150/66
[2017-04-26] MEDS: Insulin LISPRO* 1 UNITS UNIT SUBCUT SCH ×2 (07:49→10:31)
[2017-04-26] MEDS: Omeprazole CAP* 20 MG PO SCH (07:50)
--- NOTE | 2017-04-26 08:28 | PN ---
Subjective - Subjective Reason for Note: Discharge Note History: He is feeling well. He has incisional pain, but has been able to transfer independently and walk with walker. He has no chest pain, dyspnea, palpitations. He has a minor cough, no sputum. No digestive issues. Urination is normal. Current Medications: Current Medications Acetaminophen (Tylenol Tab*) 650 mg PO Q4H PRN PRN Reason: FEVER/PAIN Last Admin: 04/26/17 07:14 Dose: 650 mg Albuterol (Ventolin Hfa Inhaler*) 2 puff INH Q4H PRN PRN Reason: SOB/WHEEZING Aspirin (Aspirin Tab*) 325 mg PO BID [facility] Last Admin: 04/25/17 21:14 Dose: 325 mg Bisacodyl (Dulcolax Supp*) 10 mg ME DAILY PRN PRN Reason: constipation Last Admin: 04/25/17 11:05 Dose: 10 mg Cetirizine HCl (Zyrtec*) 10 mg PO DAILY [facility] PRN Reason: Protocol Last Admin: 04/25/17 11:04 Dose: 10 mg Dextrose (D50w Syringe 50 Ml*) 12.5 gm IV PUSH .FOR FS < 60 - SS PRN PRN Reason: FS < 60 Docusate Sodium (Colace Cap*) 100 mg PO BID [facility] Last Admin: 04/25/17 21:14 Dose: 100 mg Heparin Sodium (Porcine) (Heparin Vial(*)) 5,000 units SUBCUT Q12HR [facility] Last Admin: 04/25/17 21:14 Dose: 5,000 units Sodium Chloride (Ns 0.9% 1000 Ml*) 1,000 mls @ 100 mls/hr IV PER RATE [facility] Insulin Glargine (Lantus(*)) 40 units SUBCUT BID [facility] Last Admin: 04/25/17 21:12 Dose: 40 units Insulin Human Lispro (Humalog*) 0 units SUBCUT AC [facility] PRN Reason: Protocol Last Admin: 04/26/17 07:49 Dose: 6 unit Insulin Human Lispro (Humalog*) 0 units SUBCUT AC [facility] PRN Reason: Protocol Last Admin: 04/25/17 18:28 Dose: 5 unit Magnesium Hydroxide (Milk Of Magnesia Liq*) 30 ml PO BID [facility] Last Admin: 04/25/17 21:15 Dose: Not Given Magnesium Hydroxide (Milk Of Magnesia Liq*) 30 ml PO Q6H PRN PRN Reason: constipation Multivitamins (Theragran Tab*) 1 tab PO DAILY [facility] Last Admin: 04/25/17 10:11 Dose: 1 tab Nabumetone (Relafen Tab*) 500 mg PO BID [facility] Last Admin: 04/25/17 21:14 Dose: 500 mg Omeprazole (Prilosec Cap*) 20 mg PO 0730 [facility] Last Admin: 04/26/17 07:50 Dose: 20 mg Ondansetron HCl (Zofran Inj*) 4 mg IV Q6H PRN PRN Reason: nausea Ondansetron HCl (Zofran Tab*) 4 mg PO Q6H PRN PRN Reason: NAUSEA Scopolamine (Transderm-Scop 1.5 Mg Patch*) 1 patch TRANSDERM Q72H PRN PRN Reason: Nausea/Vomiting Tramadol HCl (Ultram*) 50 mg PO Q6H PRN PRN Reason: PAIN Home Medications: Home Medications Medication Instructions Recorded Confirmed Type Insulin GLARGINE(*) [Lantus(*)] 40 unit SUBCUT BID 04/08/15 04/23/17 History Nabumetone TAB* [Relafen TAB*] 500 mg PO BID 04/08/15 04/23/17 History Albuterol HFA INHALER* [Ventolin 2 puff INH Q4H PRN 04/21/17 04/23/17 History HFA Inhaler*] Insulin ASPART (NF) [Novolog (NF)] 0 - 20 units SUBCUT TID WITH MEALS 04/21/17 04/23/17 History Allergies: Allergies Allergy/AdvReac Type Severity Reaction Status Date / Time environmental Allergy Sneezing Uncoded 01/23/17 08:30 Objective - Vital Signs Vital Signs: Vital Signs 04/25/17 04/25/17 04/25/17 11:28 12:46 15:20 Temperature 98.9 F 98.4 F Pulse Rate 70 106 Respiratory 18 18 Rate Blood Pressure 139/56 181/86 (mmHg) O2 Sat by Pulse 95 93 97 Oximetry 04/25/17 04/25/17 04/25/17 16:00 19:47 20:00 Temperature 99.7 F Pulse Rate 43 Respiratory 18 18 Rate Blood Pressure 155/70 (mmHg) O2 Sat by Pulse 97 94 Oximetry 04/26/17 04/26/17 04/26/17 00:00 04:07 04:29 Temperature 99.2 F 98.3 F 96.2 F Pulse Rate 104 101 Respiratory 18 18 Rate Blood Pressure 160/80 (mmHg) O2 Sat by Pulse 94 97 Oximetry 04/26/17 04/26/17 07:42 07:51 Temperature 98.3 F Pulse Rate 99 Respiratory 16 16 Rate Blood Pressure 150/66 (mmHg) O2 Sat by Pulse 95 Oximetry - Intake and Output Intake and Output: Intake & Output 04/23/17 04/24/17 04/25/17 04/26/17 11:59 11:59 11:59 11:59 Intake Total 1169 5335 1820 Output Total 500 2425 3475 Balance 669 2910 -1655 Weight 315 lb Intake: IV Fluids 1119 4146 3 GM ANCEF 100 D5W 1/2 NS 1546 NS (0.9%) 1119 lr 2500 IVPB 59 55 ABX - CEFAZOLIN 59 55 Oral 50 1130 1765 Output: Urine 500 0 3475 Straight Cath 1825 Estimated Blood Loss 600 Other: Estimated Void Medium # Bowel Movements 0 # Voids 1 ADLs: Meal Record Start: 04/23/17 19: 33 Freq: Status: Active Protocol: Created 04/23/17 19:33 System (Rec: 04/23/17 19:33 System [id number]) Document 04/24/17 19:00 [id number] (Rec: 04/24/17 22:07 [id number] SSU-C01) Document 04/25/17 18:14 [id number] (Rec: 04/25/17 18:14 [id number] SSU-C09) Intake and Output Start: 04/23/17 19: 33 Freq: DAILY@0600,1400,2200 Status: Cancelled Protocol: Created 04/23/17 19:33 System (Rec: 04/23/17 19:33 System [id number]-M07) Document 04/23/17 22:00 [id number] (Rec: 04/23/17 23:08 [id number] SSU-C05) Document 04/24/17 04:30 [id number] (Rec: 04/24/17 06:06 [id number] SSU-C05) Document 04/24/17 05:04 [id number] (Rec: 04/24/17 05:04 [id number] SSU-C08) Intake and Output Start: 04/24/17 17: 20 Freq: 06,14,2200 Status: Active Protocol: Created 04/24/17 17:31 [id number] (Rec: 04/24/17 17:31 BKG [id number]) Document 04/24/17 21:56 [id number] (Rec: 04/24/17 21:57 [id number] SSU-C09) Document 04/25/17 02:53 [id number] (Rec: 04/25/17 02:53 [id number] SSU-C05) Document 04/25/17 05:50 [id number] (Rec: 04/25/17 05:50 [id number] SSU-C06) Document 04/25/17 14:00 [id number] (Rec: 04/25/17 14:44 [id number] SSU-C06) Document 04/25/17 16:46 [id number] (Rec: 04/25/17 16:48 [id number] SSU-C09) Document 04/25/17 17:35 [id number] (Rec: 04/25/17 17:36 [id number] SSU-C09) Document 04/25/17 18:35 [id number] (Rec: 04/25/17 18:35 [id number] SSU-M14) Document 04/25/17 20:32 [id number] (Rec: 04/25/17 20:32 [id number] SSU-C09) Document 04/25/17 21:53 [id number] (Rec: 04/25/17 21:53 [id number] SSU-C09) Document 04/25/17 22:02 [id number] (Rec: 04/25/17 22:03 [id number] SSU-C09) Document 04/26/17 00:16 [id number] (Rec: 04/26/17 00:16 [id number] SSU-C10) Document 04/26/17 01:45 [id number] (Rec: 04/26/17 01:45 [id number] SSU-C10) Document 04/26/17 06:00 [id number] (Rec: 04/26/17 06:18 [id number] SSU-C01) - Physical Exam General: No Cyanosis, No Anemia, No Jaundice, No Clubbing Lungs and Chest: Yes: Chest Expansion Full, Chest Expansion Symetrica, Percussion Note Resonant, Vessicular Breath Sounds. No: Crackles, Wheezes Heart Rate and Rhythm: Regular JVP: Not Elevated Additional Cardiovascular: Yes: Normal Heart Sounds. No: Heart Murmur, Pedal Edema Abdominal Exam: Yes: Soft, Bowel Sounds Present. 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 He feels ready for discharge. He has his orthopedic instructions from Dr. Borges's team and will follow up with them as an outpatient. He will resume his usual medications
[2017-04-26] MEDS: Magnesium Hydroxide LIQ* 30 ML UDC PO SCH (09:58)
[2017-04-26] MEDS: Insulin GLARGINE(*) 1 UNITS UNIT SUBCUT SCH (10:00)
[2017-04-26] MEDS: Heparin VIAL(*) 5000 UNITS/ML VIAL (FIVE THOUSAND) SUBCUT SCH (10:02)
[2017-04-26] MEDS: Cetirizine* 10 MG TAB PO SCH (10:05)
[2017-04-26] MEDS: Vitamin THERAPEUTIC TAB PO SCH (10:05)
[2017-04-26] MEDS: Aspirin TAB* 325 MG PO SCH (10:05)
[2017-04-26] MEDS: Nabumetone TAB* 500 MG PO SCH (10:06)
[2017-04-26] MEDS: Docusate CAP* 100 MG PO SCH (10:07)
[2017-04-26] MEDS ORDERED: Aspirin TAB* 325 MG PO SCH (12:00)
--- NOTE | 2017-04-26 14:29 | PN ---
Progress Note - Progress Note Date of Service: 04/26/17 SOAP: Subjective: []Patient seen at bedside. He desires DC today. RLE pain is well controlled. He denies CP, SOB, fever, chills or nausea. Patient states he was using his RLE to push himself along in his wheelchair, which he did not equate with weight bearing. Patient states he intends to shovel when he gets home. Patient refuses home care. Objective: [] Vital Signs Temp 98.3 F 04/26/17 07:42 Pulse 99 04/26/17 07:42 Resp 17 04/26/17 07:51 BP 150/66 04/26/17 07:42 Pulse Ox 95 04/26/17 07:42 Intake & Output 04/25/17 04/26/17 04/26/17 18:59 06:59 18:59 Intake Total 1238 1300 440 Output Total 1400 1925 400 Balance -162 -625 40 Intake: IV Fluids 659 D5W 1/2 NS 659 IVPB 114 ABX - CEFAZOLIN 114 Oral 465 1300 440 Output: Urine 1400 1925 400 Other: # Bowel Movements 1 Estimated Stool Amount Large # Voids 1 Laboratory Last Values WBC 7.4 10^3/ul (3.5-10.8) 04/24/17 05:01 RBC 4.95 10^6/ul (4.0-5.4) 04/24/17 05:01 Hgb 12.2 g/dl (14.0-18.0) L 04/25/17 11:02 Hct 36 % (42-52) L 04/25/17 11:02 MCV 90 fL (80-94) 04/24/17 05:01 MCH 30 pg (27-31) 04/24/17 05:01 MCHC 34 g/dl (31-36) 04/24/17 05:01 RDW 13 % (10.5-15) 04/24/17 05:01 Plt Count 240 10^3/ul (150-450) 04/25/17 11:02 MPV 9 um3 (7.4-10.4) 04/25/17 11:02 Neut % (Auto) 66.4 % (38-83) 04/24/17 05:01 Lymph % (Auto) 24.5 % (25-47) L 04/24/17 05:01 [place] % (Auto) 5.6 % (1-9) 04/24/17 05:01 Eos % (Auto) 2.5 % (0-6) 04/24/17 05:01 Baso % (Auto) 1.0 % (0-2) 04/24/17 05:01 Absolute Neuts (auto) 4.9 10^3/ul (1.5-7.7) 04/24/17 05:01 Absolute Lymphs (auto) 1.8 10^3/ul (1.0-4.8) 04/24/17 05:01 Absolute Monos (auto) 0.4 10^3/ul (0-0.8) 04/24/17 05:01 Absolute Eos (auto) 0.2 10^3/ul (0-0.6) 04/24/17 05:01 Absolute Basos (auto) 0.1 10^3/ul (0-0.2) 04/24/17 05:01 Absolute Nucleated RBC 0 10^3/ul 04/24/17 05:01 Nucleated RBC % 0 04/24/17 05:01 INR (Anticoag Therapy) 1.07 (0.77-1.02) H 04/25/17 11:02 APTT 29.9 seconds (26.0-36.3) 04/25/17 11:02 Sodium 138 mmol/L (133-145) 04/24/17 05:01 Potassium 3.9 mmol/L (3.5-5.0) 04/24/17 05:01 Chloride 105 mmol/L (101-111) 04/24/17 05:01 Carbon Dioxide 27 mmol/L (22-32) 04/24/17 05:01 Anion Gap 6 mmol/L (2-11) 04/24/17 05:01 BUN 13 mg/dL (6-24) 04/24/17 05:01 Creatinine 0.67 mg/dL (0.67-1.17) 04/24/17 05:01 Est GFR ( Amer) 154.6 (>60) 04/24/17 05:01 Est GFR (Non-Af Amer) 120.2 (>60) 04/24/17 05:01 BUN/Creatinine Ratio 19.4 (8-20) 04/24/17 05:01 Glucose 84 mg/dL (70-100) 04/24/17 05:01 POC Glucose (mg/dL) 204 mg/dL (70-100) H 04/26/17 07:39 Hemoglobin A1c 6.1 % (4.0-5.6) H 04/24/17 05:01 Calcium 9.2 mg/dL (8.6-10.3) 04/24/17 05:01 General: Well appearing, NAD RLE: Dressing changed. Incision CDI without erythema, edema or bleeding. DF/ PF intact. DP/PT 2+ BL LE: Calves supple and nontender without erythema, edema or palpable cords. Assessment: []POD 2 s/p hardware removal, ORIF R femur 04/24/16, Dr. Borges Plan: []TTWB RLE. Reviewed the importance of patient following this instruction. He understands that he is not to use his right leg for any significant weight bearing whatsoever, whether he is sitting, standing or laying down. Patient made aware of the risk of surgical failure should he not follow these instructions. Strongly discouraged from home duties including shoveling, managing wood stove until he is adequately healed and given clearance from our office to do so. PT/OT Immobilizer for comfort PRN DC home today Dr. Garsia following for medical management
--- NOTE | 2017-04-26 21:52 | DS ---
CC: Dr. Ric Borges * DISCHARGE SUMMARY: DATE OF ADMISSION: 04/23/17 DATE OF DISCHARGE: 04/26/17 DISCHARGE DIAGNOSIS: Fractured metal plate for right lower femur fracture and mobilization. PROCEDURES: On 04/24/17, open reduction internal fixation with bone grafting of right femur, removal of hardware right femur. SECONDARY DIAGNOSES: 1. Type 2 diabetes mellitus with hyperglycemia. 2. Osteoarthritis. 3. Chronic back pain. 4. Essential hypertension. 5. Obesity. 6. Peripheral neuropathy. 7. History of proliferative retinopathy. HISTORY: Lucas Graves is a 61-year-old right-handed white male, his presentation is documented in Jannie Cruz DO's admitting history and physical, which is part of the electronic medical record. In short, on 03/30/16 , he had a fall which resulted in a fracture of his distal right femur. He has had problems with malunion and had hardware placed on 03/31/17. He developed pain and could not weight bear on his right leg. He had radiology on 04/21/17, which showed that the plate had broken and was sent to the emergency room. He was admitted electively on 04/23/17 for surgery. PHYSICAL EXAMINATION ON THE DAY OF ADMISSION: Blood pressure 153/86, pulse 84, respirations 16, temperature 98, oxygen saturation 98%. He was in no acute distress. Chest was clear. Heart sounds were normal. No added sounds or murmurs or edema. Abdomen was benign. Nervous system was intact. INITIAL INVESTIGATIONS: White count 8.5, hemoglobin of 15, hematocrit 44, platelets 168. Chemistry: Sodium 134, potassium 3.8, chloride 103, bicarbonate 28, BUN 12, creatinine 0.71, glucose 198, calcium 9, normal LFTs. INITIAL IMPRESSION: He was admitted for medical optimization prior to surgery. EKG showed normal sinus rhythm, rate 82, NV 173, QTc 429, QRS axis -37. No ST- T wave changes. Dr. Borges took him for surgery on 04/24/17. He had a spinal anesthesia and had no adverse effects. The operative report is part of the electronic medical record. He performed an open reduction and internal fixation with bone grafting of the right femur and removal of hardware from the right femur. Postoperative course was unremarkable. His blood sugar was running a little high, but otherwise he was stable. He was able to mobilize with the help of physical therapy on the ultimate day in the hospital and able to independently get to walker and walk on the surgical clements. On the day of discharge, he has some incisional pain on the right side, otherwise is feeling well. REVIEW OF SYSTEMS: He has had no fevers or sweats. Cardiovascular System: No chest pain, shortness of breath, or palpitations. Respiratory System: He has a mild cough, no sputum. Gastrointestinal System: No anorexia, nausea, or vomiting. He has not had a bowel movement yet. Genitourinary System: He had one episode of retention from opioid use after the surgery, but has been voiding spontaneously since. Nervous System: No problems. PHYSICAL EXAMINATION ON THE DAY OF DISCHARGE: He is warm and well perfused, in no acute distress. Vital signs: Temperature 98.3, pulse 99, respirations 16, blood pressure 150/66, oxygen saturation 95%. No cyanosis, anemia, jaundice, clubbing, or lymphadenopathy. Respiratory System: Chest expansion was full and symmetrical. Percussion note resonant. Breath sounds were normal. No crackles or wheezes. Cardiovascular System: Pulse was regular. Heart sounds were normal. No added sounds or murmurs. No pedal edema. Abdominal System: No distention, masses, tenderness, or organomegaly. Nervous System: Normal. He is alert and oriented and aware of his situation. ASSESSMENT AND PLAN: 1. Right lower femur ORIF and removal of hardware. This will be followed as an outpatient by Dr. Borges. 2. Type 2 diabetes mellitus with hyperglycemia. His blood sugars are running a little higher than usual. This will return to normal as he takes control of his diabetes as an outpatient. He may be running higher just due to the stress of the surgery. 3. Hypertension. This is reasonably well controlled. 4. Osteoarthritis and chronic low back pain. This is ongoing. 5. Depression. He is not taking any medications for this at the present time. 6. Obesity. This is a longstanding challenge. DISCHARGE MEDICATIONS: 1. Aspirin 325 mg twice daily. 2. Nabumetone 500 mg twice daily. 3. Glargine insulin 40 units subcutaneously twice daily. 4. Albuterol HFA inhaler 2 puffs every 4 hours as needed. 5. Insulin aspart 0 to 20 units before meals as per usual. [id number]/[facility] #: [id number] [facility]
[2017-04-27] MEDS ORDERED: Scopolamine PATCH Remove* 1 NOTE MISC PATCH OFF ONE (11:33)
== END 2017-04-26 11:10 | disposition home or self-care (01) | DRG 791 ==
LOC: SSU 19:30
PROVIDERS: ADMIT Hospitalist; ATTEND Internal Medicine
PROC: 0QSB04Z Reposition Right Lower Femur with Internal Fixation Device, Open Approach (ICD-10-PCS; 2017-04-24)
PROC: 0QUB0KZ Supplement Right Lower Femur with Nonautologous Tissue Substitute, Open Approach (ICD-10-PCS; 2017-04-24)
PROC: 0QPB04Z Removal of Internal Fixation Device from Right Lower Femur, Open Approach (ICD-10-PCS; principal; 2017-04-24 11:00)
DX: T85.618A Breakdown (mechanical) of other specified internal prosthetic devices, implants and grafts, initial encounter (principal); Z68.41 Body mass index [BMI] 40.0-44.9, adult; E11.42 Type 2 diabetes mellitus with diabetic polyneuropathy; E11.3599 Type 2 diabetes mellitus with proliferative diabetic retinopathy without macular edema, unspecified eye; S72.401K Unspecified fracture of lower end of right femur, subsequent encounter for closed fracture with nonunion; X58.XXXA Exposure to other specified factors, initial encounter; Y92.9 Unspecified place or not applicable; E11.65 Type 2 diabetes mellitus with hyperglycemia; M19.90 Unspecified osteoarthritis, unspecified site; M54.89 Other dorsalgia; I10 Essential (primary) hypertension; Z66 Do not resuscitate; F32.9 Major depressive disorder, single episode, unspecified; E66.01 Morbid (severe) obesity due to excess calories; R33.9 Retention of urine, unspecified; W17.89XD Other fall from one level to another, subsequent encounter; Z79.1 Long term (current) use of non-steroidal anti-inflammatories (NSAID); Z79.4 Long term (current) use of insulin; Z79.899 Other long term (current) drug therapy; Z80.8 Family history of malignant neoplasm of other organs or systems; Z87.891 Personal history of nicotine dependence
CPT/HCPCS: 36415; 76001; 80048; 83036; 85014; 85018; 85025; 85049; 85610; 85730; 88300; 93005; A9270-GY; J0690; J1200; J1644; J2001; J2060; J2250; J2300; J2704; J3010

== ENCOUNTER → 2018-09-25 16:00 | Emergency (ER) | payer OTHER ==
--- NOTE | 2018-09-25 17:08 | ED ---
Adult Trauma - HPI Summary HPI Summary: 66-year-old male presents with right rib and hip pain today. He states that he was walking and shopping cart got away and he ended up falling onto his right ribs and hip. He states he is able to ambulate on that hip but has been having gradually increasing pain. Denies any shortness breath. He has no history of COPD or asthma. Has history of diabetes. He has plates placed in femur and tibia in right leg. No head injury. No neck pain. No loss consciousness. denies any abdominal pain. - History of Current Complaint Chief Complaint: EDFall Stated Complaint: POSSIBLE FRACTURED RIBS PER EMS Time Seen by Provider: 09/25/18 16:30 Pain Intensity: 3 - Additional Pertinent History Primary Care Physician: [id number] - Allergy/Home Medications Allergies/Adverse Reactions: Allergies Allergy/AdvReac Type Severity Reaction Status Date / Time environmental Allergy Sneezing Uncoded 01/23/17 08:30 PMH/Surg Hx/FS Hx/Imm Hx Endocrine/Hematology History: Reports: Hx Diabetes - INSULIN DEPENDENT Denies: Hx Thyroid Disease, Hx Anemia Cardiovascular History: Denies: Hx Hypertension, Hx Pacemaker/ICD Respiratory History: Denies: Hx Asthma, Hx Chronic Obstructive Pulmonary Disease (COPD) GI History: Denies: Hx Jaundice, Hx Ulcer History: Denies: Hx Renal Disease Musculoskeletal History: Reports: Hx Arthritis, Hx Back Problems, Hx Fibromyalgia, Hx Tendonitis, Other Musculoskeletal History - STATES HAS A HX OF SEVERAL HEALED COMPRESSION FRACTURES Sensory History: Reports: Hx Contacts or Glasses Denies: Hx Hearing Aid Opthamlomology History: Reports: Hx Contacts or Glasses Psychiatric History: Reports: Hx Depression Denies: Hx Panic Disorder, Hx Substance Abuse - Surgical History Surgery Procedure, Year, and Place: CARPAL TUNNEL-BILATERAL. 2016-PLATES IN RIGHT LEG-STELLA. APPENDECTOMY, TEETH REMOVED. TIBIAL [id number]. LASER ABLASION TREATMENT Hx Anesthesia Reactions: No - Immunization History Date of Tetanus Vaccine: Unknown Infectious Disease History: No Infectious Disease History: Reports: Hx Shingles Denies: Hx Hepatitis, Hx Human Immunodeficiency Virus (HIV), Traveled Outside the [place] in Last 30 Days - Family History Known Family History: Positive: Hypertension, Diabetes - Social History Alcohol Use: Rare Substance Use Type: Reports: None Hx Tobacco Use: No Smoking Status (MU): Former Smoker Type: Cigarettes Amount Used/How Often: 1.5 PPD X 10 YEARS Have You Smoked in the Last Year: No Review of Systems Negative: Fever Positive: Other - right rib pain Negative: Shortness Of Breath Positive: Myalgia - right hip pain All Other Systems Reviewed And Are Negative: Yes Physical Exam Triage Information Reviewed: Yes Vital Signs On Initial Exam: Initial Vitals Temp Pulse Resp BP Pulse Ox 97.5 F 83 16 182/92 93 09/25/18 16:16 09/25/18 16:16 09/25/18 16:16 09/25/18 16:16 09/25/18 16:16 Vital Signs Reviewed: Yes Appearance: Positive: Well-Appearing Skin: Positive: Warm, Dry Head/Face: Positive: Normal Head/Face Inspection Eyes: Positive: Normal, Conjunctiva Clear ENT: Positive: Pharynx normal Respiratory/Lung Sounds: Positive: Clear to Auscultation, Breath Sounds Present , Other - tenderness over right ribs, no step off Cardiovascular: Positive: Normal, RRR Abdomen Description: Positive: Nontender, Soft Musculoskeletal: Positive: Limited @ - flexion, Other - good pulses, mild tenderness over right hip, nontender knee and femur Neurological: Positive: Normal Psychiatric: Positive: Normal Diagnostics - Vital Signs Vital Signs Temp Pulse Resp BP Pulse Ox 09/25/18 16:16 97.5 F 83 16 182/92 93 - Laboratory Lab Statement: Any lab studies that have been ordered have been reviewed, and results considered in the medical decision making process. - Radiology rib Radiology Interpretation Completed By: Radiologist Summary of Radiographic Findings: IMPRESSION: 1. No radiographically apparent displaced rib fracture or pneumothorax. 2. Questionable nondisplaced fracture involving the right L4 transverse process. Please. correlate to physical examination and focality of the patient's pain. hip Radiology Interpretation Completed By: Radiologist Summary of Radiographic Findings: IMPRESSION: Degenerative changes without radiographically apparent fracture or. dislocation. femur Radiology Interpretation Completed By: ED Physician Summary of Radiographic Findings: christopher in place Re-Evaluation - Re-Evaluation First Eval Re-Evaluation Time: 18:30 Comment: able to ambulate without hip pain but pain into femur Second Eval Re-Evaluation Time: 20:11 Comment: patient again declined CT Adult Trauma Course/Dx - Course Course Of Treatment: 66-year-old male presents with right rib and hip pain today. He states that he was walking and shopping cart got away and he ended up falling onto his right ribs and hip. He states he is able to ambulate on that hip but has been having gradually increasing pain. Denies any shortness breath. He has no history of COPD or asthma. Has history of diabetes. He has plates placed in femur and tibia in right leg. No head injury. No neck pain. No loss consciousness. denies any abdominal pain. On exam tenderness over right ribs. Minimal tenderness over right hip. Limited flexion of right hip. Neurovascularly intact. X-ray shows no appartent rib fracture. no apparent hip fracture. was able to ambulate but has decreased strength. offered to do a CT and patient declined. wants to follow up with ortho instead. told return if develop any worsening symptoms for imaging. patient understand and agrees with plan. - Diagnoses Differential Diagnosis/HQI/PQRI: Positive: Contusion(s), Fracture, Strain Provider Diagnoses: Right hip pain, Contusion of ribs Discharge - Sign-Out/Discharge Documenting (check all that apply): Patient Departure Patient Received Moderate/Deep Sedation with Procedure: No - Discharge Plan Condition: Good Disposition: HOME Patient Education Materials: Hip Pain (ED) Referrals: Yariel Garsia MD [Primary Care Provider] - Ric Borges MD [Medical Doctor] - Additional Instructions: Take Tylenol every 6 hours as needed for pain Apply ice Follow up with ortho Return to ED if develop any new or worsening symptoms - Billing Disposition and Condition Condition: GOOD Disposition: Home
[2018-09-25] MEDS: Acetaminophen TAB* 325 MG PO ONE (17:15)
[2018-09-25 20:21] VITALS: BP 166/93
== END | disposition home or self-care (01) ==
LOC: ED 16:00
DX: S20.211A Contusion of right front wall of thorax, initial encounter (principal); M25.551 Pain in right hip; W18.39XA Other fall on same level, initial encounter; E11.9 Type 2 diabetes mellitus without complications; Z79.4 Long term (current) use of insulin; Z87.891 Personal history of nicotine dependence
CPT/HCPCS: 99281; A9270-GY